=== PATIENT | male | born 1950 | race Caucasian/White ===

== ENCOUNTER 2024-08-14 11:44 | Emergency (ER) | payer MEDICARE, OTHER ==
[~2024-08-14] VITALS: Ht 188 cm; Wt 100.7 kg
[~2024-08-14 11:44] MED LIST: ASPIRIN EC325 MG PO; CALCIUM 600 +1 EACH PO; FINASTERIDE5 MG PO; LEVOTHYROXINE150 MCG PO; LEVOTHYROXINE200 MCG PO; LIPITOR40 MG PO; MELOXICAM15 MG PO; METOPROLOL SUCC25 MG PO; OMEGA 3 1,0001 EACH PO; OMEPRAZOLE20 MG PO; POTASSIUM GLUCO90 MG PO; SILDENAFIL20 MG PO; TAMSULOSIN HCL0.4 MG PO; VIAGRA100 MG PO; VITAMIN D31000 UNI1 PO; WARFARIN SODIUM5 MG PO
[2024-08-14 11:59] LABS: BASOPHILS 1.4 % (0-2); EOSINOPHILS 1.4 % (0-6); HEMATOCRIT 44.6 % (35.0-50.0); HEMOGLOBIN 15.3 g/dL (12.0-18.0); LYMPHOCYTES 23.8 % (24-44); MCH 32.3 (27-36); MCHC 34.3 g/dl (30-36); MCV 94.2 fl (81-99); MONOCYTES 10.4 % (0-12); PLATELET COUNT 226 K/uL (140-440); RBC 4.74 M/ul (4.3-5.7); RDW 13.2 (10.5-15.0)
[2024-08-14 12:12] LABS: INR 2.19 (0.80-1.30); PROTIME 24.4 Sec (11.2-14.2)
[2024-08-14 12:23] LABS: ALBUMIN 3.6 g/dL (3.4-5.0); ALBUMIN/GLOBULIN RATIO 1.09 (1.1-2.4); ANION GAP 13.9 (7-21); BILIRUBIN, TOTAL 0.9 ng/dL (0.2-1.0); BUN/CREATININE RATIO 16.03 (6.0-28.6); CALCIUM 9.2 mg/dL (8.5-10.1); CREATININE, SERUM 1.31 mg/dL (0.70-1.30); MAGNESIUM 1.9 mg/dL (1.8-2.4); POTASSIUM 3.9 mmol/L (3.5-5.1); PROTEIN, TOTAL 6.9 g/dL (6.4-8.2)
[2024-08-14] MEDS ORDERED: ADENOSINE 3 MG/ML VIAL IV ONE (12:30)
[2024-08-14] MEDS ORDERED: propofoL 200 MG/20 ML VIAL IV ONE (13:00)
[2024-08-14 14:10] VITALS: BP 97/69
--- NOTE | 2024-08-15 13:16 | EKG ---
[facility] [address] [facility] [place], [place] [address] Signed Supraventricular tachycardia Otherwise normal ECG No previous ECGs available Confirmed by Isaias Clark MD ([id number]) on 08/15/2024 1:16:24 PM Electronically Signed By: ISAIAS CLARK MD 08/15/24 1316 PATIENT NAME: HUMAIRA BRYAN Electrocardiogram DATE OF : 46 PHYSICIAN: ISAIAS CLARK MD REPORT #: [id number] REPORT IS CONFIDENTIAL AND NOT TO BE RELEASED WITHOUT AUTHORIZATION
--- NOTE | 2024-08-15 13:31 | EKG ---
[facility] [address] [facility] [place] [address] Signed Supraventricular tachycardia Inferior infarct , age undetermined Abnormal ECG When compared with ECG of 14-AUG-2024 11:50, (Unconfirmed) Inferior infarct is now present Confirmed by Isaias Clark MD ([id number]) on 08/15/2024 1:31:38 PM Electronically Signed By: ISAIAS CLARK MD 08/15/24 1331 PATIENT NAME: HUMAIRA BRYAN Electrocardiogram DATE OF : 46 PHYSICIAN: ISAIAS CLARK MD REPORT #: [id number] REPORT IS CONFIDENTIAL AND NOT TO BE RELEASED WITHOUT AUTHORIZATION
--- NOTE | 2024-08-15 13:32 | EKG ---
[facility] [address] [place] [address] Signed Normal sinus rhythm Normal ECG When compared with ECG of 14-AUG-2024 12:44, (Unconfirmed) Vent. rate has decreased BY 57 BPM Criteria for Inferior infarct are no longer present Confirmed by Isaias Clark MD ([id number]) on 08/15/2024 1:32:03 PM Electronically Signed By: ISAIAS CLARK MD 08/15/24 1332 PATIENT NAME: HUMAIRA BRYAN Electrocardiogram DATE OF : 46 PHYSICIAN: ISAIAS CLARK MD REPORT #: [id number] REPORT IS CONFIDENTIAL AND NOT TO BE RELEASED WITHOUT AUTHORIZATION
== END 2024-08-14 14:14 | disposition home or self-care (01) ==
LOC: ED 11:44
PROVIDERS: Emergency Medicine
DX: I48.92 Unspecified atrial flutter (principal); I48.91 Unspecified atrial fibrillation; E03.9 Hypothyroidism, unspecified; Z79.01 Long term (current) use of anticoagulants; Z79.890 Hormone replacement therapy; Z79.899 Other long term (current) drug therapy
CPT/HCPCS: 36415; 71045; 80053; 83735; 84484; 85025; 85610; 92960; 93005; 93010; 93041; 94799; 99285-25; J0153; J2704

== ENCOUNTER 2024-10-20 19:08 | Emergency (ER) | payer MEDICARE, OTHER ==
[~2024-10-20] VITALS: Ht 188 cm; Wt 104.6 kg
[~2024-10-20 19:08] MED LIST changes: +HYDROCODON-ACE1 EA10 PO
--- OUTSIDE RECORDS SUMMARY | 2024-10-20 19:14 | XMS ---
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 - 2 Visits in 30 Days CARE PROVIDERS NHAN STEWART Internal Medicine Current PHONE: Unknown KALPANA CARL Emergency Medicine Current PHONE: Unknown Maicol has no Care Guidelines for this patient. Kaylene VISIT COUNT (12 MO.) [address] [place] [address] TOTAL 3 NOTE: Visits indicate total known visits. 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 [place] TYPE: Emergency COMPLAINT: - HEART RATE ISSUE DIAGNOSES: - Hormone replacement therapy - Hypothyroidism, unspecified - care home (current) use of anticoagulants - Other terminal superintendent (current) drug therapy - Palpitations - Unspecified atrial fibrillation - Unspecified atrial flutter INPATIENT VISIT TRACKING (12 MO.) No inpatient visits to display in this time frame [email or web address]
[2024-10-20] MEDS ORDERED: METOPROLOL SUCC25 MG PO (19:29)
[2024-10-20 19:44] LABS: BASOPHILS 1.1 % (0-2); EOSINOPHILS 1.6 % (0-6); HEMATOCRIT 39.8 % (35.0-50.0); LYMPHOCYTES 33.7 % (24-44); MCH 32.4 (27-36); MCV 92.4 fl (81-99); NEUTROPHILS 54.6 % (39-80); PLATELET COUNT 220 K/uL (140-440); RBC 4.31 M/ul (4.3-5.7)
[2024-10-20] MEDS ORDERED: SODIUM CHLORIDE 0.9% 500 ML IV ONE (19:45)
[2024-10-20] MEDS ORDERED: METOPROLOL TARTRATE 5 MG/5 ML VIAL IV ONE (19:45)
[2024-10-20 19:57] LABS: INR 4.01 (0.80-1.30); PROTIME 36.7 Sec (11.2-14.2)
[2024-10-20 20:11] LABS: ALBUMIN 3.5 g/dL (3.4-5.0); ALBUMIN/GLOBULIN RATIO 1.03 (1.1-2.4); ANION GAP 13.3 (7-21); BILIRUBIN, TOTAL 0.5 mg/dL (0.2-1.0); BUN/CREATININE RATIO 22.55 (6.0-28.6); CREATININE, SERUM 1.33 mg/dL (0.70-1.30); MAGNESIUM 1.9 mg/dL (1.8-2.4); POTASSIUM 4.3 mmol/L (3.5-5.1); PROTEIN, TOTAL 6.9 g/dL (6.4-8.2); TSH, 3RD GENERATION 0.506 uIU/mL (0.358-3.740)
[2024-10-20 20:49] LABS: BILIRUBIN, URINE NEGATIVE (negative); BLOOD/HGB, URINE NEGATIVE (Negative); KETONE, URINE NEGATIVE (Negative); LEUK ESTERASE, URINE NEGATIVE (negative); NITRITE, URINE NEGATIVE (negative); PH, URINE 5.5 (5-7)
[2024-10-20 21:03] LABS: AMPHETAMINES, URINE NEGATIVE (NEGATIVE); BARBITURATES, URINE NEGATIVE (NEGATIVE); BENZODIAZEPINE, URINE NEGATIVE (NEGATIVE); BUPRENORPHINE, URINE NEGATIVE (NEGATIVE); CANNABINOID, URINE NEGATIVE (NEGATIVE); COCAINE, URINE NEGATIVE (NEGATIVE); ECSTASY, URINE NEGATIVE (NEGATIVE); FENTANYL, URINE NEGATIVE (NEGATIVE); METHADONE, URINE NEGATIVE (NEGATIVE); OPIATES, URINE NEGATIVE (NEGATIVE); OXYCODONE, URINE NEGATIVE (NEGATIVE); PHENCYCLIDINE, URINE NEGATIVE (NEGATIVE)
[2024-10-20] MEDS ORDERED: CALCIUM CARBONATE 500 MG CHEW PO ONE (21:45)
[2024-10-20] MEDS ORDERED: dilTIAZem HCL 25 MG/5 ML VIAL IV ONE (21:45)
[2024-10-20] MEDS ORDERED: FAMOTIDINE 20 MG/ 2 ML VIAL IV ONE (21:45)
[2024-10-20 23:32] VITALS: BP 110/68
[2024-10-21] MEDS ORDERED: VITAMIN D325 MCG PO (16:21)
--- NOTE | 2024-10-21 17:47 | EKG ---
[facility] [address] [facility] [place] [address] Signed Sinus tachycardia with short MS Possible Inferior infarct , age undetermined Abnormal ECG When compared with ECG of 14-AUG-2024 13:18, Vent. rate has increased BY 56 BPM Borderline criteria for Inferior infarct are now present Confirmed by Francis Lisa DO ([id number]) on 10/21/2024 5:47:38 PM Electronically Signed By: FRANCIS LISA DO 10/21/24 1747 PATIENT NAME: HUMAIRA BRYAN Electrocardiogram DATE OF : 46 PHYSICIAN: FRANCIS LISA DO REPORT #: [id number] REPORT IS CONFIDENTIAL AND NOT TO BE RELEASED WITHOUT AUTHORIZATION
== END 2024-10-20 23:38 | disposition home or self-care (01) ==
LOC: ED 19:08
PROVIDERS: Internal Medicine
DX: I48.91 Unspecified atrial fibrillation (principal); E03.9 Hypothyroidism, unspecified; E78.5 Hyperlipidemia, unspecified; Z79.01 Long term (current) use of anticoagulants; Z79.899 Other long term (current) drug therapy
CPT/HCPCS: 36415; 71045; 80053; 80307; 81003; 83735; 83880; 84443; 84484; 85025; 85610; 93005; 93010; 96374; 96375; 99285-25; J7040

== ENCOUNTER 2024-10-21 12:04 | Inpatient (IN) | payer MEDICARE, OTHER ==
[~2024-10-21] VITALS: Ht 188 cm; Wt 106.2 kg
[2024-10-21] VITALS (9 sets, daily range): BP systolic 94–110; BP diastolic 59–79
[2024-10-21 12:26] LABS: BASOPHILS 0.7 % (0-2); HEMATOCRIT 40.3 % (35.0-50.0); HEMOGLOBIN 13.9 g/dL (12.0-18.0); LYMPHOCYTES 31.7 % (24-44); MCHC 34.5 g/dl (30-36); MCV 92.8 fl (81-99); MONOCYTES 8.1 % (0-12); NEUTROPHILS 57.5 % (39-80); PLATELET COUNT 203 K/uL (140-440); RBC 4.34 M/ul (4.3-5.7); RDW 13.1 (10.5-15.0)
--- OUTSIDE RECORDS SUMMARY | 2024-10-21 12:28 | XMS ---
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 Kaylene VISIT COUNT (12 MO.) [address] [place] [address] TOTAL 4 NOTE: Visits indicate total known visits. ED/UCC VISIT TRACKING (12 MO.) 10/21/2024 12:22 [facility] TYPE: Emergency COMPLAINT: - STROKE SYMPTOMS 10/20/2024 19:08 [facility] TYPE: Emergency COMPLAINT: - HIGH HEART RATE 10/01/2024 15:36 [facility] TYPE: Emergency COMPLAINT: - FOOT PAIN DIAGNOSES: - Displaced fracture of medial cuneiform of left foot, initial encounter for closed fracture - Fall on same level from slipping, tripping and stumbling without subsequent striking against object, initial encounter - Hypothyroidism, unspecified - [facility] (current) use of anticoagulants - Other terminal worker (current) drug therapy - Pain in left ankle and joints of left foot - Unspecified atrial fibrillation 08/14/2024 11:[address] 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
[2024-10-21 12:43] LABS: ALBUMIN 3.5 g/dL (3.4-5.0); ALBUMIN/GLOBULIN RATIO 1.06 (1.1-2.4); BUN/CREATININE RATIO 16.41 (6.0-28.6); CALCIUM 8.7 mg/dL (8.5-10.1); CREATININE, SERUM 1.34 mg/dL (0.70-1.30); PROTEIN, TOTAL 6.8 g/dL (6.4-8.2)
[2024-10-21 12:44] LABS: INR 2.99 (0.80-1.30); PROTIME 29.7 Sec (11.2-14.2)
[2024-10-21] MEDS ORDERED: METOPROLOL TARTRATE 5 MG/5 ML VIAL IV SCH (12:45)
[2024-10-21] MEDS ORDERED: SODIUM CHLORIDE 0.9% 1,000 ML IV ONE (13:00)
[2024-10-21] MEDS ORDERED: dilTIAZem HCL 25 MG/5 ML VIAL IV ONE (13:00)
[2024-10-21] MEDS ORDERED: ACETAMINOPHEN 325 MG TAB PO PRN (15:15)
[2024-10-21] MEDS ORDERED: SODIUM CHLORIDE 0.9% 1,000 ML IV SCH (15:15)
[2024-10-21] MEDS ORDERED: DIGOXIN 500 MCG/2 ML AMP IV ONE ×2 (15:30→21:30)
[2024-10-21] MEDS ORDERED: WARFARIN SOD 2.5 MG TAB PO SCH (16:00)
--- NOTE | 2024-10-21 16:00 | NUR ---
Patient arrives to CCU on stretcher, able to transfer self to bed with no assistance. HR goes to 130 with this movement. Pt A+O, on RA, LSC, HR 95 at rest, afib rhythm. Bowel tones active. Pt endores hx of syncope, cardioversions, ablation in 2010, BPH, thyroid issues. Pt has an implanted sleep apnea device in his chest wall. Pt takes chronic coumadin. IVF infusing into L AC. States no needs at this time. Oriented to call light system.
[2024-10-21] MEDS ORDERED: VITAMIN D325 MCG PO (16:21)
--- NOTE | 2024-10-21 16:26 | NUR ---
Medications reconciled using pharmacy records and patient interview. Patient takes all medications at bedtime.
[2024-10-21] MEDS ORDERED: ATORVASTATIN 40 MG TAB PO SCH (17:00)
--- NOTE | 2024-10-21 17:00 | NUR ---
In and spoke with Todd and his . Brother and chiquis are also present. Pt states they live out of [place]. He is somewhat active and does the yard work. He does not use any DME. He has an Inspire implanted device for sleep apnea. He lives in a split level home with 7 steps and hand rails. Son and daughter in law live downstairs. He denies any financial issues or or safety concerns. Pt plans on dc to home when cleared medically.
--- NOTE | 2024-10-21 17:50 | EKG ---
[facility] [address] [facility] [place] [address] Signed Atrial flutter with 2:1 AV conduction Cannot rule out Inferior infarct (cited on or before 14-AUG-2024) Abnormal ECG When compared with ECG of 20-OCT-2024 19:22, (Unconfirmed) Atrial flutter has replaced Sinus rhythm Confirmed by Francis Lisa DO ([id number]) on 10/21/2024 5:50:33 PM Electronically Signed By: FRANCIS LISA DO 10/21/24 1750 PATIENT NAME: HUMAIRA BRYAN Electrocardiogram DATE OF : 46 PHYSICIAN: FRANCIS LISA DO REPORT #: [id number] REPORT IS CONFIDENTIAL AND NOT TO BE RELEASED WITHOUT AUTHORIZATION
--- NOTE | 2024-10-21 17:50 | NUR ---
Patient given scheduled medications and has no further needs. HR varying between 90 with rest and [address] Hidalgo aware, scheduled dose of digoxin for 2129.
--- NOTE | 2024-10-21 18:08 | NUR ---
Patient ambulates to BR with HR max 130 with activity, aflutter at this time. BP stable. IVF infusing. 100% of dinner eaten. Family at bedside. Pt has no further needs at this time.
[2024-10-21] MEDS ORDERED: LEVOTHYROXINE SODIUM 150 MCG TAB PO SCH (21:00)
[2024-10-21] MEDS ORDERED: MELATONIN 3 MG TAB PO PRN (21:00)
[2024-10-21] MEDS ORDERED: TAMSULOSIN HCL 0.4 MG CAP PO SCH (21:00)
[2024-10-21] MEDS ORDERED: FINASTERIDE 5 MG TAB PO SCH (21:00)
[2024-10-21] MEDS ORDERED: PANTOPRAZOLE SODIUM 40 MG TABEC PO SCH (21:00)
[2024-10-21] MEDS ORDERED: APIXABAN 5 MG TAB PO SCH (21:00)
--- NOTE | 2024-10-21 21:31 | NUR ---
CARE ASSUMPTION NOTE Received report on this pt at beginning of shift. Upon initial assessment, patient is awake, alert, cooperative, able to appropriately express needs. Denies pain. Oriented to call light, call light within reach. Pt appears vitally stable at this time, HR 80's - 90's, remains in AFIB. BP soft, 94/59 MAP 70. Room air. No s/s of acute distress at this time.
--- NOTE | 2024-10-21 22:43 | NUR ---
NURSING NOTE Pt resting comfortably in bed with eyes closed. Denies pain. Reports no s/s of acute distress. AFIB w/ HR 70's.
--- NOTE | 2024-10-21 23:29 | NUR ---
ACTIVITY Pt ambulated from bed to bathroom and back w/ SBA provided by this RN. During ambulation, pt HR climbed to 130's, came down to 110's while pt standing in bathroom urinating. HR is now 70's-80's while pt at rest, lying in bed. BP stable. Pt denied dizziness, lightheadedness, chest pain while ambulating.
[2024-10-22] VITALS (13 sets, daily range): BP systolic 89–122; BP diastolic 59–89
--- NOTE | 2024-10-22 00:32 | NUR ---
ROUNDING NOTE Pt in bed, resting with eyes closed. Easily arousable. Denies pain. Pt expresses needs are met at this time. Vitally stable. AFIB, HR 70's. No s/s of acute distress at this time.
--- NOTE | 2024-10-22 02:17 | NUR ---
NURSING NOTE Pt resting in bed with eyes closed, even chest rise and fall observed. Per ECG, pt is now in sinus rhythm. ECG strip in chart. No s/s of acute distress at this time.
[2024-10-22 05:51] LABS: BASOPHILS 2.3 % (0-2); HEMATOCRIT 37.3 % (35.0-50.0); HEMOGLOBIN 12.9 g/dL (12.0-18.0); LYMPHOCYTES 30.8 % (24-44); MCH 32.1 (27-36); MCHC 34.5 g/dl (30-36); MCV 93.1 fl (81-99); MONOCYTES 10.2 % (0-12); NEUTROPHILS 53.7 % (39-80); PLATELET COUNT 160 K/uL (140-440); RBC 4.01 M/ul (4.3-5.7); RDW 13.3 (10.5-15.0)
--- NOTE | 2024-10-22 05:59 | NUR ---
SHIFT SUMMARY Pt awake, alert, and oriented. Able to appropriately express needs. Denies pain. No s/s acute distress at this time. Rested well overnight. Ambulated to bathroom a few times, tolerated fairly well. HR increases to 120's-130's with activity. However, pt denies chest pain, dizziness, palpitations when prompted by this RN. No s/s of acute distress at this time.
[2024-10-22 06:09] LABS: DIGOXIN 0.9 ng/dL (0.9-2.0)
[2024-10-22 06:12] LABS: ALBUMIN 2.8 g/dL (3.4-5.0); ALBUMIN/GLOBULIN RATIO 0.97 (1.1-2.4); ANION GAP 11.1 (7-21); BILIRUBIN, TOTAL 0.8 mg/dL (0.2-1.0); BUN/CREATININE RATIO 15.3 (6.0-28.6); CALCIUM 7.8 mg/dL (8.5-10.1); CREATININE, SERUM 0.98 mg/dL (0.70-1.30); POTASSIUM 4.1 mmol/L (3.5-5.1); PROTEIN, TOTAL 5.7 g/dL (6.4-8.2)
[2024-10-22 06:23] LABS: INR 2.95 (0.80-1.30); PROTIME 29.4 Sec (11.2-14.2)
[2024-10-22] MEDS ORDERED: LEVOTHYROXINE SODIUM 150 MCG TAB PO SCH (07:00)
--- NOTE | 2024-10-22 07:20 | NUR ---
RECIEVED SHIFT REPORT FROM SHELDON HUTSON.
--- NOTE | 2024-10-22 08:03 | NUR ---
PT AWAKE IN BED, DENIES DISCOMFORT. REQUESTED TO USE TO RESTROOM, INDEPENDENT, TOLERATED WELL. CHAIR WAS SUGGESTED, PT AGREEABLE. MORNING ASSESSMENT COMPLETE. CALL LIGHT IN REACH. WARM BLANKET AND ICE WATER PROVIDED.
[2024-10-22] MEDS ORDERED: PANTOPRAZOLE SODIUM 40 MG TABEC PO SCH (09:00)
[2024-10-22] MEDS ORDERED: FINASTERIDE 5 MG TAB PO SCH (09:00)
[2024-10-22] MEDS ORDERED: TAMSULOSIN HCL 0.4 MG CAP PO SCH (09:00)
[2024-10-22] MEDS ORDERED: DIGOXIN 250 MCG TAB PO SCH (09:00)
--- NOTE | 2024-10-22 09:40 | NUR ---
Spoke with Todd. He denies needs. Wants to go home. "I'm fine". Scheduled a fu appt with Dr. Ceballos for 10/23/24 at 1:20. Home with when medically cleared by
--- NOTE | 2024-10-22 09:47 | NUR ---
MOVED PT FROM RECLINER TO BED FOR ECHO.
--- NOTE | 2024-10-22 09:49 | NUR ---
UR CLINICAL REVIEW: 2MN CASSANDRA, MEETS INPT FOR AFIB RVR IV CARDIAC MEDS, CARDIAC MONITORING, ECHO MEDICARE INPT 10/21/2024 @ 1518 ORDER MATCHES REG NO AUTH REQUIRED PER MEDICARE RULES PLAN TO DC TO HOME TODAY AFTER ECHO
--- NOTE | 2024-10-22 10:33 | NUR ---
PT AWAKE IN BED, DENIES NEEDS. CALL LIGHT IN REACH.
[2024-10-22] MEDS ORDERED: SODIUM CHLORIDE 0.9% 1,000 ML IV ONE (10:45)
--- NOTE | 2024-10-22 11:01 | NUR ---
PT NOT AVAILABLE FOR VISIT. PROVIDED PRAYER.
[2024-10-22] MEDS ORDERED: PHARMACY RENAL DOSE ADJUSTMENT 1 DOSE MISC PO SCH (12:00)
--- NOTE | 2024-10-22 12:10 | NUR ---
PT WITH PHYSICAL THERAPY AT THIS TIME. PT USED RESTROOM W/O DIFFICULTY.
[2024-10-22] MEDS ORDERED: LANOXIN250 MCG PO (12:48)
[2024-10-22] MEDS ORDERED: LEVOTHYROXINE125 MCG PO (12:49)
[2024-10-22] MEDS ORDERED: WARFARIN SOD 2.5 MG TAB PO SCH (16:00)
[2024-10-22] MEDS ORDERED: WARFARIN PER PHARMACY PROTOCOL PO SCH (16:00)
[2024-10-22] MEDS ORDERED: LEVOTHYROXINE SODIUM 125 MCG TAB PO SCH (21:00)
[2024-10-23 23:20] LABS: THYROXINE 7.47 ug/dL (4.50-11.70)
== END 2024-10-22 13:58 | disposition home or self-care (01) | DRG 312 ==
LOC: ED 12:04 → CCU 15:24
PROVIDERS: Emergency Medicine; ADMIT Student in an Organized Health Care Education/Training Program; ATTEND Student in an Organized Health Care Education/Training Program
DX: I95.2 Hypotension due to drugs (principal); I48.20 Chronic atrial fibrillation, unspecified; E03.9 Hypothyroidism, unspecified; E78.5 Hyperlipidemia, unspecified; N40.0 Benign prostatic hyperplasia without lower urinary tract symptoms; T44.7X5A Adverse effect of beta-adrenoreceptor antagonists, initial encounter; K21.9 Gastro-esophageal reflux disease without esophagitis; Z98.890 Other specified postprocedural states; Z79.890 Hormone replacement therapy; Z79.899 Other long term (current) drug therapy
CPT/HCPCS: 36415; 80053; 80162; 83735; 84436; 84439; 84443; 84484; 85025; 85610; 93005; 93010; 93306; 96374; 96375; 97161; 99285-25; A9270; J1160; J7030